=== PATIENT | male | born 1985 | race Caucasian/White ===

== ENCOUNTER → 2016-10-13 | Emergency (ER) | payer BC ==
[2016-10-13 13:35] LABS: EOSINOPHIL (%) 0.6 % (0-5); EOSINOPHIL COUNT 0.1 K/uL (0-0.3); HEMATOCRIT 44.9 % (38.0-50.0); IMMATURE GRANULOCYTE (%) 0.4 % (0.0-0.7); INSTRUMENT ABS NEUTROPHIL CT 4.6 K/uL; LYMPHOCYTE COUNT 2.6 K/uL (1.0-2.8); MCH 29.4 PG (29.0-34.0); MCV 84.1 FL (86-99); MEAN PLAT.VOLUME 9.7 uM^3 (9.0-12.4); MONOCYTE (%) 8.9 % (3-12); MONOCYTE COUNT 0.7 K/uL (0-0.8); NEUTROPHIL (%) 57.6 % (45-76); NEUTROPHIL COUNT 4.6 K/uL (1.8-6.4); PLATELET COUNT 250 K/uL (156-360); RBC DIS.WIDTH-CV 12.4 % (11.8-14.6); RBC DIS.WIDTH-SD 37.6 % (39-53); RED BLOOD COUNT 5.34 M/uL (4.00-5.50)
[2016-10-13 13:45] LABS: AMYLASE 82 IU/L (1-118); CHLORIDE 102 mEq/L (99-109); POTASSIUM 3.1 mEq/L (3.7-5.4); SODIUM 135 mEq/L (136-147)
[2016-10-13 13:47] LABS: GLUCOSE 119 mg/dL (70-99)
[2016-10-13 13:48] LABS: ANION GAP 12 MEQ/L (2-14)
[2016-10-13 13:50] LABS: SERUM ETHYL ALCOHOL < 10 mg/dL
[2016-10-13 13:51] LABS: UREA NITROGEN (BUN) 19 mg/dL (9-23)
[2016-10-13 13:53] LABS: GFR ESTIMATE (CALCULATED) > 59 mL/min/; LIPASE 23 U/L (1.0-51.0)
== END | disposition home or self-care (01) ==
LOC: TRA 13:18
PROVIDERS: Emergency Medicine
DX: S06.0X0A Concussion without loss of consciousness, initial encounter (principal); M79.642 Pain in left hand; S00.81XA Abrasion of other part of head, initial encounter; W11.XXXA Fall on and from ladder, initial encounter
CPT/HCPCS: 70450; 73130; 80048; 81003; 82150; 83690; 85025; 86900; 86901; 99281; 99284; G0480